=== PATIENT | female | born 1955 | race Caucasian/White ===

== ENCOUNTER → 2016-09-18 | Outpatient (CLI) | payer BC ==
[~2016-09-18] MED LIST: CALCTAB13 PO; CHOL100027 PO; CHOL1TAB46 PO; CLMTP5 TD; CYAN3INJ IM; FAMO20TA11 PO; FLR1 PO; HYD10 PO; MULT-506 PO; MULTTAB94 PO; NIAC500T11 PO; PRMVC PV; SERT100T PO; SERT25TA PO; TRMCR130WC TOP; VITA1CAP11 PO; VITA400C15 PO; [UNRECOGNIZED DRUG - CODE] INJ; [UNRECOGNIZED DRUG - CODE] SC
== END | disposition home or self-care (01) ==
LOC: C.MAMM 08:08
PROVIDERS: ATTEND Internal Medicine
DX: Z00.00 Encounter for general adult medical examination without abnormal findings (principal); E21.3 Hyperparathyroidism, unspecified

== ENCOUNTER → 2016-11-29 | Outpatient (CLI) | payer BC ==
[2016-11-29 12:44] LABS: BLOOD UREA NITROGEN 22 mg/dl (7-18); BUN/CREATININE RATIO 27.3 (10-20); CALCIUM 9.5 mg/dl (8.5-10.1); CARBON DIOXIDE 29 mmol/L (21-32); CHLORIDE 105 mmol/L (98-107); CREATININE 0.82 mg/dl (0.60-1.20); GLUCOSE 82 mg/dl (70-99); POTASSIUM 3.7 mmol/L (3.5-5.1); SODIUM 141 mmol/L (136-145)
[2016-12-05 02:21] LABS: ILGF1 Z SCORE FEMALE 0.1 SD (-2.0 - +2.0); INSULIN LIKE GROWTH FACTOR-I 135 ng/mL (41-279)
== END | disposition home or self-care (01) ==
LOC: C.LAB1850 09:37
PROVIDERS: ATTEND Internal Medicine Endocrinology, Diabetes & Metabolism
DX: E55.9 Vitamin D deficiency, unspecified (principal); M81.0 Age-related osteoporosis without current pathological fracture; E24.1 Nelson's syndrome; E27.40 Unspecified adrenocortical insufficiency; F41.8 Other specified anxiety disorders; Z86.39 Personal history of other endocrine, nutritional and metabolic disease; E23.0 Hypopituitarism

== ENCOUNTER → 2017-12-04 | Outpatient (CLI) | payer OTHER ==
[2017-12-04 10:50] LABS: ALBUMIN 3.4 gm/dl (3.4-5.0); ALT/SGPT 17 U/L (12-78); AST/SGOT 12 U/L (15-37); BLOOD UREA NITROGEN 20 mg/dl (7-18); CALCIUM 8.8 mg/dl (8.5-10.1); CARBON DIOXIDE 32 mmol/L (21-32); CREATININE 0.82 mg/dl (0.60-1.20); GLUCOSE 78 mg/dl (70-99); POTASSIUM 3.5 mmol/L (3.5-5.1); SODIUM 139 mmol/L (136-145)
[2017-12-04 10:52] LABS: ALKALINE PHOSPHATASE 48 U/L (45-117); T3 FREE 2.54 pg/ml (2.30-4.20); TOTAL PROTEIN 6.8 gm/dl (6.4-8.2)
[2017-12-08 18:18] LABS: INSULIN LIKE GROWTH FACTOR-I 113 ng/mL (41-279)
== END | disposition home or self-care (01) ==
LOC: C.LAB1850 09:30
PROVIDERS: ATTEND Internal Medicine Endocrinology, Diabetes & Metabolism
DX: E55.9 Vitamin D deficiency, unspecified (principal); M81.0 Age-related osteoporosis without current pathological fracture; Z86.39 Personal history of other endocrine, nutritional and metabolic disease; E24.1 Nelson's syndrome; E23.0 Hypopituitarism; E27.40 Unspecified adrenocortical insufficiency; E03.8 Other specified hypothyroidism; Z87.898 Personal history of other specified conditions